=== PATIENT | female | born 1950 | race Caucasian/White ===

== ENCOUNTER 2018-06-30 09:56 | Emergency (ER) | payer OTHER ==
[2018-06-30 10:24] VITALS: BMI 23.5
[2018-06-30] MEDS ORDERED: SODIUM CHLORIDE 1,000 ML IV ONE (10:53)
[2018-06-30] MEDS ORDERED: MECLIZINE HCL 25 MG TABLET (FP) PO ONE (10:53)
[2018-06-30] MEDS ORDERED: METOCLOPRAMIDE HCL INJECTION 10 MG/2 ML VIAL IVPUSH ONE (10:53)
[2018-06-30] MEDS ORDERED: MECLIZINE HCL 25 MG TABLET (FP) ONE (11:11)
[2018-06-30] MEDS ORDERED: METOCLOPRAMIDE HCL INJECTION 10 MG/2 ML VIAL ONE (11:11)
--- NOTE | 2018-06-30 11:17 | PDOC ---
History of Present Illness <Jerilyn Arango - Last Filed: 06/30/18 14:16> - General History Source: Patient Exam Limitations: No Limitations - History of Present Illness Initial Comments: 06/30/18 11:19 67y F hx of htn, hl, hx of vertigo 2 yrs ago presents with onset of vertigo since last night at 8pm. The patient states that she was fine during the day at approximately 8 PM she started feeling very vertiginous associated with nausea and vomiting. Patient also endorses some palpitations. Denies any headache, double vision, difficulty speaking, neck pain, recent injury trauma, fever, chills, chest pain. Patient notes she had similar symptoms approximately 2 years ago but this feels much worse. She notes that when she is laying still she feels okay without any vertigo but as soon as she stands up and tries to walk she feels very vertiginous and she feels very off balance. Patient called Dr. Mullen referred the patient the ED for evaluation. <Mike Anderson - Last Filed: 06/30/18 14:28> - General Chief Complaint: Headache Stated Complaint: HEADACHE Time Seen by Provider: 06/30/18 10:18 Past History <Jerilyn Arango - Last Filed: 06/30/18 14:16> - Past Medical History Cardiac Disorders: Yes ("VALVE PROBLEM") COPD: No DVT: No Dementia: No HTN: Yes Hypercholesterolemia: Yes Other medical history: VERTIGO - Suicide/Smoking/Psychosocial Hx Smoking History: Never smoked Hx Alcohol Use: No Drug/Substance Use Hx: No <Mike Anderson - Last Filed: 06/30/18 14:28> - Past Medical History Allergies/Adverse Reactions: Allergies Allergy/AdvReac Type Severity Reaction Status Date / Time No Known Allergies Allergy Verified 06/30/18 10:03 Home Medications: Ambulatory Orders Meclizine HCl 25 mg PO DAILY PRN 06/30/18 Meclizine HCl [Antivert -] 25 mg PO TID PRN #25 tablet 06/30/18 Ondansetron [Zofran -] 4 mg PO TID PRN #14 tablet 06/30/18 Review of Systems - Review of Systems Able to Perform ROS?: Yes Comments:: 06/30/18 11:21 Constitutional - no reported Fever, Chills, HEENT: no reported vision changes, sore throat Respiratory: no reported cough, sob, hemoptysis Cardiac: no reported chest pain, palpitations, light headedness, leg swelling Abd/GI: +nausea, vomiting, no reported abd pain, blood per rectum, melena, diarrhea : no reported dysuria, frequency, discharge Musculskelatal - no reported back pain, joint swelling skin - no reported bruising, erythema, rash neurological: +vertigo no reported headache, numbness, focal weakness, tingling , ataxia, hematologic: no reported easy bruising, easy bleeding <JustinMike - Last Filed: 06/30/18 14:28> *Physical Exam - Vital Signs Last Vital Signs Temp Pulse Resp BP Pulse Ox 98.1 F 81 17 140/79 98 06/30/18 13:23 06/30/18 13:23 06/30/18 13:23 06/30/18 13:23 06/30/18 13:23 <Jerilyn Arango - Last Filed: 06/30/18 14:16> - Vital Signs Last Vital Signs Temp Pulse Resp BP Pulse Ox 97.6 F 75 16 151/68 99 06/30/18 10:04 06/30/18 10:04 06/30/18 10:04 06/30/18 10:04 06/30/18 10:04 - Physical Exam Comments: 06/30/18 11:21 GENERAL: The patient is awake, alert, and fully oriented, Nontoxic - in no acute distress. HEAD: Normocephalic, atraumatic. EYES: extraocular movements intact, sclera anicteric, conjunctiva clear. ENT: Normal voice, Moist mucous membranes. NECK: Normal range of motion, supple LUNGS: Breath sounds equal, clear to auscultation bilaterally. No wheezes, no rhonchi, no rales. HEART: Regular rate and rhythm, normal S1 and S2 without murmur, rub or gallop. ABDOMEN: Soft, nontender, normoactive bowel sounds. No guarding, no rebound. . No CVA tenderness EXTREMITIES: Normal range of motion, no edema. No clubbing or cyanosis. No cords, erythema, or tenderness. PSYCH: Normal mood, normal affect. SKIN: Warm, Dry, normal turgor, NEURO: Mental status: The patient is oriented x3. Cranial nerves: Cranial nerves II through XII are intact Motor: The upper extremities are 5 over 5 in all muscle groups. The lower extremities are 5 over 5 in all muscle groups. Negative pronator drift Sensation: Sensation is intact to light touch throughout. romberg negative Cerebellar: Aqljxa-uxrnez-dzri is normal in both upper extremities. rapid alternating movements are normal. Gait: deferred <Mike Anderson - Last Filed: 06/30/18 14:28> Heart Score/ECG Review - ECG Impressions Comment:: 06/30/18 12:33 Twelve-lead EKG was performed and reviewed by me. There is normal sinus rhythm with a normal rate. Rate of 66 The axis is normal. The intervals are normal. There is normal R wave progression There are no ST or T wave abnormalities. Impression: Normal twelve-lead EKG <Mike Anderson - Last Filed: 06/30/18 14:28> ED Treatment Course - LABORATORY CBC & Chemistry Diagram: 06/30/18 11:20 06/30/18 11:20 - ADDITIONAL ORDERS Additional order review: Laboratory Results 06/30/18 11:20 Sodium 135 L Potassium 4.6 Chloride 103 Carbon Dioxide 27 Anion Gap 6 L BUN 20 H Creatinine 0.7 Creat Clearance w eGFR > 60 Random Glucose 142 H Calcium 8.7 Total Bilirubin 0.3 AST 19 ALT 19 Alkaline Phosphatase 94 Total Protein 7.6 Albumin 3.9 06/30/18 11:20 RBC 4.62 MCV 85.1 MCHC 34.3 RDW 14.3 MPV 8.7 Neutrophils % 89.8 H Lymphocytes % 7.7 L Monocytes % 2.1 L Eosinophils % 0.1 Basophils % 0.3 - Medications Given in the ED: ED Medications Discontinued Medications Generic Name Dose Route Start Last Admin Trade Name Freq PRN Reason Stop Dose Admin Diazepam 2 mg 06/30/18 13:09 06/30/18 13:24 Valium - PO 06/30/18 13:10 2 mg ONCE ONE Administration Sodium Chloride 1,000 mls @ 1,000 mls/hr 06/30/18 10:53 06/30/18 11:47 Normal Saline - IV 06/30/18 11:52 1,000 mls/hr .Q1H ONE Administration Meclizine HCl 25 mg 06/30/18 10:53 06/30/18 11:47 Antivert - PO 06/30/18 10:54 25 mg ONCE ONE Administration Metoclopramide HCl 10 mg 06/30/18 10:53 06/30/18 11:47 Reglan Injection - IVPUSH 06/30/18 10:54 10 mg ONCE ONE Administration <Jerilyn Arango - Last Filed: 06/30/18 14:16> - LABORATORY CBC & Chemistry Diagram: 06/30/18 11:20 06/30/18 11:20 <Mike Anderson - Last Filed: 06/30/18 14:28> Medical Decision Making - Medical Decision Making 06/30/18 14:[address] Rashid Mcarthur at this time to discuss disposition of this patient. <Jerilyn Arango - Last Filed: 06/30/18 14:16> - Medical Decision Making 06/30/18 11:22 67-year-old female of hypertension, hyperlipidemia presenting with complaint of vertigo starting approximately 8 AM that has been gradually worsening, worse with ambulation improved with lying still, endorses some palpitations without any chest pain. Differential for the patient's symptoms includes vertigo, no signs of central vertigo (exam including neuro exam reveals no dysmetria dysarthria diplopia) Consider possible metabolic derangements arrhythmia anemia Will obtain blood work EKG UA will give fluids, meclizine, Reglan Will reassess 06/30/18 14:18 Patient's blood work is unremarkable, CT is negative The patient is feeling significantly improved the patient is able to ambulate on her own, neuro exam remains unremarkable with negative Romberg, strength symmetric bilaterally, without any lateralizing findings or cerebellar findings. We will give the patient meclizine, Zofran will have patient follow with neurology Return precautions were discussed Case was discussed with Dr. Mullen who agrees with management I discussed the physical exam findings, ancillary test results and final diagnoses with the patient. I answered all of the patient's questions. The patient was satisfied with the care received and felt comfortable with the discharge plan and treatment plan. The patient will call their primary care physician within 24 hours to arrange follow-up and will return to the Emergency Department with any new, persistent or worsening symptoms. <Mike Anderson - Last Filed: 06/30/18 14:28> *DC/Admit/Observation/Transfer <Jerilyn Arango - Last Filed: 06/30/18 14:16> - Discharge Dispostion Decision to Admit order: No <Mike Anderson - Last Filed: 06/30/18 14:28> Diagnosis at time of Disposition: Vertigo - Discharge Dispostion Disposition: HOME Condition at time of disposition: Improved - Referrals Referrals: Rashid Mcarthur MD [Primary Care Provider] - Sawyer Garcia DO [Staff Physician] - - Patient Instructions Printed Discharge Instructions: DI for Vertigo Additional Instructions: Return to the emergency department immediately with ANY new, persistent or worsening symptoms including persistent vertigo, inability to tolerate oral intake, headache, numbness/tingling/weakness, difficulty speaking or vision changes. You MUST call and follow up with your doctor and neurologist within 2-3 days for further evaluation of your symptoms. Results were discussed with you. Please make sure your doctor reviews the results of your emergency evaluation. Print Language: CAMEROONIAN - Post Discharge Activity
[2018-06-30 11:31] LABS: BASO % 0.3 % (0-2.0); EOS % 0.1 % (0-4.5); HEMATOCRIT 39.3 % (32.4-45.2); HEMOGLOBIN 13.5 GM/dL (10.7-15.3); LYMPH % 7.7 % (8-40); MCH 29.2 pg (25.7-33.7); MCHC 34.3 g/dl (32.0-36.0); MEAN CELL VOLUME 85.1 fl (80-96); MEAN PLT VOLUME 8.7 fl (7.5-11.1); MONO % 2.1 % (3.8-10.2); NEUT % 89.8 % (42.8-82.8); PLATELET COUNT 224 K/MM3 (134-434); RBC 4.62 M/mm3 (3.60-5.2); RDW 14.3 % (11.6-15.6); WHITE BLOOD COUNT 9.7 K/mm3 (4.0-10.0)
[2018-06-30 12:08] LABS: ALBUMIN 3.9 g/dl (3.4-5.0); ALK PHOS 94 U/L (45-117); ANION GAP 6 MMOL/L (8-16); BILIRUBIN,TOTAL 0.3 mg/dL (0.2-1); BLOOD UREA NITROGEN 20 mg/dL (7-18); CALCIUM 8.7 mg/dL (8.5-10.1); CHLORIDE 103 mmol/L (98-107); CO2 27 mmol/L (21-32); CREATININE 0.7 mg/dL (0.55-1.3); GLUCOSE,RANDOM 142 mg/dL (74-106); POTASSIUM 4.6 mmol/L (3.5-5.1); SGOT/AST 19 U/L (15-37); SGPT/ALT 19 U/L (13-61); SODIUM 135 mmol/L (136-145); TOT PROT 7.6 g/dl (6.4-8.2)
[2018-06-30] MEDS ORDERED: diazePAM 2 MG TABLET PO ONE (13:09)
[2018-06-30] MEDS ORDERED: diazePAM 2 MG TABLET ONE (13:10)
[2018-06-30 13:24] VITALS: PULSE 81
[2018-06-30 14:43] VITALS: BP 135/77; TEMP 98
--- NOTE | 2018-06-30 18:07 | EKG ---
Test Reason : Blood Pressure : / mmHG Vent. Rate : 066 BPM Atrial Rate : 066 BPM P-R Int : 148 ms QRS Dur : 086 ms QT Int : 434 ms P-R-T Axes : 070 005 021 degrees QTc Int : 454 ms NORMAL SINUS RHYTHM NORMAL ECG WHEN COMPARED WITH ECG OF 12-APR-2014 13:34, NO SIGNIFICANT CHANGE WAS FOUND Confirmed by JAZZY BOWMAN MD ([id number]) on 06/30/2018 6:07:27 PM Referred By: Confirmed By:JAZZY BOWMAN MD
== END 2018-06-30 14:43 | disposition home or self-care (01) ==
LOC: JER 09:56
PROC: 3E033GC Introduction of Other Therapeutic Substance into Peripheral Vein, Percutaneous Approach (ICD-10-PCS; principal; 2018-06-30)
DX: R42 Dizziness and giddiness (principal)
CPT/HCPCS: 36415; 70450-TC; 80053; 85025; 93005; 93010; 96374; 99284-25; J7030

== ENCOUNTER 2018-11-13 09:42 | Emergency (ER) | payer OTHER ==
[2018-11-13 10:03] VITALS: BP 131/65; PULSE 72; TEMP 98.5; BMI 27.4
--- NOTE | 2018-11-13 10:51 | PDOC ---
*Physical Exam - Vital Signs Last Vital Signs Temp Pulse Resp BP Pulse Ox 98.5 F 72 16 131/65 100 11/13/18 09:57 11/13/18 09:57 11/13/18 09:57 11/13/18 09:57 11/13/18 09:57 Medical Decision Making - Medical Decision Making 11/13/18 10:51 Pt seen by Midlevel Provider under my direct supervision Pt interviewed and examined Ancillary studies reviewed I agree with plan as outlined by Midlevel Provider
--- NOTE | 2018-11-13 12:03 | PDOC ---
History of Present Illness - General Chief Complaint: Revisit,Wound Recheck Stated Complaint: RT ARM PAIN Time Seen by Provider: 11/13/18 10:23 Exam Limitations: No Limitations - History of Present Illness Initial Comments: 11/13/18 11:58 68-year-old female who went for a cardiac catheter at [facility] via the right wrist/forearm presents to ED with redness and tenderness to the affected area for the last 3 days. Patient went to her primary care doctor Dr. Mcarthur who recommended warm soaks and to elevate as this is likely phlebitis. Patient denies worsening symptoms including fever, weakness over worsening swelling since the office visit but came here for a second opinion. Patient denies history of diabetes, radiation of pain, or paresthesia distal of affected area. Timing/Duration: other (3 days) Severity: mild Associated Symptoms: reports: other (redness and tenderness to right hand). denies: fever/chills Past History - Travel Traveled outside of the country in the last 30 days: No Close contact w/someone who was outside of country & ill: No - Past Medical History Allergies/Adverse Reactions: Allergies Allergy/AdvReac Type Severity Reaction Status Date / Time No Known Allergies Allergy Verified 06/30/18 10:03 Home Medications: Ambulatory Orders Amlodipine Besylate 5 mg PO DAILY 11/13/18 Aspirin [ASA -] 81 mg PO DAILY 11/13/18 Atorvastatin Ca [Lipitor] 10 mg PO HS 11/13/18 Diazepam 10 mg PO BID 11/13/18 Metoprolol Succinate 25 mg PO DAILY 11/13/18 Telmisartan 80 mg PO DAILY 11/13/18 Cardiac Disorders: Yes ("VALVE PROBLEM") COPD: No DVT: No Dementia: No HTN: Yes Hypercholesterolemia: Yes - Suicide/Smoking/Psychosocial Hx Smoking History: Never smoked Have you smoked in the past 12 months: No Information on smoking cessation initiated: No Hx Alcohol Use: No Drug/Substance Use Hx: No Patient Lives Alone: No Lives with/in: spouse/SO Review of Systems - Review of Systems Able to Perform ROS?: No Is the patient limited Vietnamese proficient: No Constitutional: No: Symptoms Reported HEENTM: No: Symptoms Reported Respiratory: No: Symptoms reported Cardiac (ROS): No: Symptoms Reported ABD/GI: No: Symptoms Reported : No: Symptoms Reported Musculoskeletal: No: Symptoms Reported, Joint Swelling Integumentary: Yes: Erythema, Lumps Neurological: No: Symptoms reported Endocrine: No: Symptoms Reported Hematologic/Lymphatic: No: Symptoms Reported *Physical Exam - Vital Signs Last Vital Signs Temp Pulse Resp BP Pulse Ox 98.5 F 72 16 131/65 100 11/13/18 09:57 11/13/18 09:57 11/13/18 09:57 11/13/18 09:57 11/13/18 09:57 - Physical Exam General Appearance: Yes: Nourished, Appropriately Dressed. No: Apparent Distress HEENT: negative: Pale Conjunctivae Respiratory/Chest: positive: Lungs Clear, Normal Breath Sounds. negative: Respiratory Distress, Accessory Muscle Use Cardiovascular: positive: Regular Rhythm, Regular Rate. negative: Murmur Extremity: positive: Normal Capillary Refill, Normal Range of Motion Integumentary: positive: Swelling (with erythema over the dorsal aspect of right hand extending to the right wrist. No palpable fluctuance no increased warmth), Bruising (to the inner aspect of right wrist and mid forearm) Neurologic: positive: Motor Strength 5/5 (right hand grasp and ambulatory) Moderate Sedation - Procedure Monitoring Vital Signs: Procedure Monitoring Vital Signs Temperature 98.5 F 11/13/18 09:57 Pulse Rate 72 11/13/18 09:57 Respiratory Rate 16 11/13/18 09:57 Blood Pressure 131/65 11/13/18 09:57 O2 Sat by Pulse Oximetry (%) 100 11/13/18 09:57 ED Treatment Course - LABORATORY CBC & Chemistry Diagram: 11/13/18 11:48 11/13/18 11:48 - RADIOLOGY Radiology Studies Ordered: Category Date Time Status DUPLEX VASCUL US-1 ARM [US] Stat Ultrasound 11/13/18 10:24 Ordered Medical Decision Making - Medical Decision Making 11/13/18 12:00 Chief complaint: Redness tenderness to the right wrist and right hand for the past 2 days patient reason cardiac catheter via site. Exam: Patient noted redness and tenderness over the dorsal aspect of right hand extending to the right wrist. Patient has yellowish ecchymosis to the inner aspect of right wrist extending to midforearm. No increased warmth no palpable fluctuance Plan: Likely phlebitis but will order basic labs to rule out infection and an ultrasound to rule out thrombosis 11/13/18 12:13 Ultrasound shows no evidence of deep venous thrombosis in the right upper extremity. 11/13/18 12:47 Laboratory Tests 11/13/18 11/13/18 11:48 11:48 Hgb 13.4 Hct 38.3 Neutrophils % 68.0 D Sodium 137 Potassium 4.5 Chloride 104 Carbon Dioxide 26 Anion Gap 7 L BUN 20 H Creatinine 0.7 Creat Clearance w eGFR > 60 Random Glucose 86 Calcium 9.0 Total Bilirubin 0.4 AST 25 ALT 19 Alkaline Phosphatase 99 Total Protein 7.7 Albumin 3.8 *DC/Admit/Observation/Transfer Diagnosis at time of Disposition: Phlebitis - Discharge Dispostion Disposition: HOME Condition at time of disposition: Good - Referrals Referrals: Rashid Mcarthur MD [Primary Care Provider] - - Patient Instructions Printed Discharge Instructions: Superficial Thrombophlebitis Additional Instructions: Please read over instructions about phlebitis. Apply warm soaks to the affected area which will promote healing if area becomes more red tender or hot, please return to the nearest ED. - Post Discharge Activity
[2018-11-13 12:09] LABS: BASO % 0.7 % (0-2.0); EOS % 1.6 % (0-4.5); HEMATOCRIT 38.3 % (32.4-45.2); HEMOGLOBIN 13.4 GM/dL (10.7-15.3); MCH 30.6 pg (25.7-33.7); MCHC 34.9 g/dl (32.0-36.0); MEAN CELL VOLUME 87.7 fl (80-96); MEAN PLT VOLUME 9.8 fl (7.5-11.1); MONO % 7.7 % (3.8-10.2); PLATELET COUNT 220 K/MM3 (134-434); RBC 4.36 M/mm3 (3.60-5.2); RDW 13.6 % (11.6-15.6)
[2018-11-13 12:32] LABS: ALBUMIN 3.8 g/dl (3.4-5.0); ALK PHOS 99 U/L (45-117); ANION GAP 7 MMOL/L (8-16); BILIRUBIN,TOTAL 0.4 mg/dL (0.2-1); BLOOD UREA NITROGEN 20 mg/dL (7-18); CHLORIDE 104 mmol/L (98-107); CO2 26 mmol/L (21-32); CREATININE 0.7 mg/dL (0.55-1.3); GLUCOSE,RANDOM 86 mg/dL (74-106); POTASSIUM 4.5 mmol/L (3.5-5.1); SGOT/AST 25 U/L (15-37); SGPT/ALT 19 U/L (13-61); SODIUM 137 mmol/L (136-145); TOT PROT 7.7 g/dl (6.4-8.2)
[2018-11-13 14:45] LABS: WHITE BLOOD COUNT 9.3 K/mm3 (4.0-10.0)
== END 2018-11-13 13:10 | disposition home or self-care (01) ==
LOC: JER 09:42
DX: T81.72XA Complication of vein following a procedure, not elsewhere classified, initial encounter (principal); Z98.61 Coronary angioplasty status; Y83.8 Other surgical procedures as the cause of abnormal reaction of the patient, or of later complication, without mention of misadventure at the time of the procedure; Y92.89 Other specified places as the place of occurrence of the external cause
CPT/HCPCS: 36415; 80053; 85025; 93971; 99282-25